=== PATIENT | male | born 1955 | race Caucasian/White ===

== ENCOUNTER → 2016-02-27 | Outpatient (CLI) | payer OTHER ==
[~2016-02-27] MED LIST: ARGI1TAB PO; COEN100C6 PO; DXY100 PO; ENOX100I SC; MULT-655 PO; RIVA1TAB7 PO; ZINC30TA3 PO
[2016-03-03 16:34] LABS: COAG FACTOR 2 ACTIVITY*TC 331 108 % (70-150); PROTEIN C ACTIVITY** TC 1777X 185 % (70-180); PROTEIN S ACT(FUNCT)**1779X 106 % (70-150)
== END | disposition home or self-care (01) ==
LOC: C.LAB 15:47
PROVIDERS: ATTEND Internal Medicine Critical Care Medicine
DX: I26.99 Other pulmonary embolism without acute cor pulmonale (principal)